=== PATIENT | female | born 1975 | race Caucasian/White ===

== ENCOUNTER 2017-02-10 07:45 | Emergency (ER) | payer OTHER ==
[~2017-02-10] VITALS: Ht 162.6 cm; Wt 65.5 kg
[~2017-02-10 07:45] MED LIST: AMOX TR-K CLV1 EAC4; ASCORBIC ACID500 M3 PO; CITRATE OF MAG296 ML PO; DAILY VALUE1 EACH PO; ENPRESSE1 EACH; FLAGYL500 MG; LAXATIVE DIETA500 MG PO; LEXAPRO10 MG PO; LORTAB 5-325 M1 EACH PO; NAPROSYN500 MG PO; PANTOPRAZOLE SO40 MG; PERI-COLACE TA1 EACH PO; PLEXUS PO; PROBIOTIC1 EAC1 PO; PROBIOTIC1 EACH PO; PROTONIX40 MG PO; VITAMIN B122500 MCG PO; VITAMIN C W/AC500 M1 PO; VITAMIN D33000 UNIT PO
[2017-02-10 08:23] LABS: HEMATOCRIT 45.7 % (36.0-46.0); MCH 29.4 PG (29.0-34.0); MCHC 33.5 G/DL (30.0-36.0); MCV 87.9 FL (83-99); MEAN PLAT.VOLUME 8.9 uM^3 (9.5-12.4); PLATELET COUNT 294 K/uL (156-360); RBC DIS.WIDTH-CV 13.1 % (11.8-14.6); RBC DIS.WIDTH-SD 42.5 % (39-53); WHITE BLOOD COUNT 6.8 K/uL (4.1-10.2)
[2017-02-10 08:32] LABS: CHLORIDE 109 mEq/L (99-109); POTASSIUM 4.1 mEq/L (3.7-5.4); SODIUM 140 mEq/L (136-147)
[2017-02-10 08:34] LABS: GLUCOSE 101 mg/dL (70-99)
[2017-02-10 08:35] LABS: ANION GAP 11 MEQ/L (2-14)
[2017-02-10 08:36] LABS: TOTAL BILIRUBIN 0.6 mg/dL (0.0-1.0)
[2017-02-10 08:37] LABS: ALKALINE PHOSPHATASE 26 IU/L (3-129)
[2017-02-10 08:38] LABS: GFR ESTIMATE (CALCULATED) > 59 mL/min/
[2017-02-10 08:39] LABS: UREA NITROGEN (BUN) 20 mg/dL (9-23)
[2017-02-10 08:41] LABS: LIPASE 36 U/L (1.0-51.0)
[2017-02-10 08:46] LABS: QUANTITATIVE HCG < 4.0 MIU/ML
[2017-02-10 09:33] LABS: ADD MIUA? NO; BILIRUBIN NEGATIVE; BLOOD NEGATIVE; COLOR STRAW ((YELLOW)); GLUCOSE (STRIP) NEGATIVE; KETONES NEGATIVE; LEUKOCYTES NEGATIVE; NITRITE NEGATIVE; PROTEIN (STRIP) NEGATIVE; SPECIFIC GRAVITY 1.005 (1.000-1.030); UROBILINOGEN 0.2 MG/DL (0.2-1.0)
[2017-02-10] MEDS ORDERED: ANASPAZ0.125 MG PO (09:38)
[2017-02-10] MEDS ORDERED: MIRALAX255 GM PO (09:38)
[2017-02-10 10:25] VITALS: BP 98/64
== END 2017-02-10 10:30 | disposition home or self-care (01) ==
LOC: EME 07:45
PROVIDERS: Nurse Practitioner Family
DX: K29.70 Gastritis, unspecified, without bleeding (principal); K59.09 Other constipation; K21.9 Gastro-esophageal reflux disease without esophagitis; E16.2 Hypoglycemia, unspecified; G47.419 Narcolepsy without cataplexy
CPT/HCPCS: 74000; 80053; 81003; 83690; 84702; 85027; 93005; 99281; 99285; J2405; J7030

== ENCOUNTER 2017-11-22 05:31 | Day surgery (SDC) | payer OTHER ==
[~2017-11-22] VITALS: Ht 162.6 cm; Wt 64.4 kg
[~2017-11-22 05:31] MED LIST changes: +ADDERALL20 MG PO; +ANASPAZ0.125 MG PO; +APPLE CIDER VI300 MG PO; +LEVOTHYROXINE50 MCG PO; +LINZESS145 MCG PO; +MAGNESIUM400 M1 PO; +MIRALAX255 GM PO; +OMEPRAZOLE20 M2 PO; +ORTHO TRI-CY1 TABLE1 PO; +VITAMIN B COMP1 EACH PO; +VITAMIN D31000 UNI2 PO
[2017-11-22 06:05] VITALS: BP 110/71
[2017-11-22] MEDS ORDERED: ENDOCET 5-3251 EACH PO (11:59)
[2017-11-22] MEDS ORDERED: IBUPROFEN800 MG PO (11:59)
[2017-11-22 13:08] VITALS: BP 108/61
[2017-11-22 14:30] VITALS: BP 98/53
[2017-11-22 15:35] VITALS: BP 109/53
== END 2017-11-22 15:38 | disposition home or self-care (01) ==
LOC: SDC 05:31
DX: N92.1 Excessive and frequent menstruation with irregular cycle (principal); N94.6 Dysmenorrhea, unspecified; N94.10 Unspecified dyspareunia; N80.3 Endometriosis of pelvic peritoneum; N80.8 Other endometriosis; D25.9 Leiomyoma of uterus, unspecified; K66.0 Peritoneal adhesions (postprocedural) (postinfection); Z98.51 Tubal ligation status; K21.9 Gastro-esophageal reflux disease without esophagitis; Z91.09 Other allergy status, other than to drugs and biological substances; Z80.3 Family history of malignant neoplasm of breast; Z82.5 Family history of asthma and other chronic lower respiratory diseases
CPT/HCPCS: 88307; J0131; J0690; J1100; J1170; J1885; J2175; J2250; J2405; J2710; J3010; Q0175